=== PATIENT | male | born 1990 | race Caucasian/White ===

== ENCOUNTER 2019-02-18 15:23 | Emergency (ER) | payer SELFPAY ==
[2019-02-18] MEDS ORDERED: Ketorolac 60 MG/2 ML SDV IM ONE (16:00)
[2019-02-18] MEDS ORDERED: Orphenadrine 100 MG Tab.ER PO ONE (16:00)
--- NOTE | 2019-02-18 16:09 | EDM.PDOC ---
ED HPI GENERAL MEDICAL PROBLEM - General Chief Complaint: Back Pain or Injury Stated Complaint: BACK PAIN Time Seen by Provider: 02/18/19 15:31 Source of Information: Reports: Patient, RN Notes Reviewed History Limitations: Reports: No Limitations - History of Present Illness INITIAL COMMENTS - FREE TEXT/NARRATIVE: Patient is a 28-year-old male who presents to the ED for the evaluation of a back injury. 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 This is at the level of the top of his hips. He states that the pain does not radiate down his leg, nor does he have any numbness or tingling down the extremities. Patient states that he is residing in a hotel at this time, and he is having to get around the hotel room on his hands and knees as walking is somewhat painful for him. He states he has tried some Tylenol, Aleve and Advil however this has not provided to much relief. He states he feels as if there is a general stiffness associated with this. He denies any sort of previous injury to this area. Bilateral Upper Back Pain Score (Numeric/FACES): 8 - Related Data Allergies Allergy/AdvReac Type Severity Reaction Status Date / Time No Known Allergies Allergy Verified 02/18/19 15:31 Home Meds: Home Meds Albuterol Sulfate [Proair Respiclick] 2 puff INH QID PRN 02/18/19 [History] Orphenadrine [Norflex] 100 mg PO BID PRN #20 tab 02/18/19 [Rx] traMADol [Ultram] 50 mg PO Q6H PRN #28 tab 02/18/19 [Rx] Past Medical History Respiratory History: Reports: Asthma Social & Family History - Family History Family Medical History: Noncontributory - Tobacco Use Smoking Status *Q: Former Smoker Used Tobacco, but Quit: Yes Month/Year Tobacco Last Used: july 2017 - Caffeine Use Caffeine Use: Reports: Coffee - Recreational Drug Use Recreational Drug Use: No ED ROS GENERAL - Review of Systems Review Of Systems: See Below Constitutional: Reports: No Symptoms HEENT: Reports: No Symptoms Respiratory: Reports: No Symptoms Cardiovascular: Reports: No Symptoms Endocrine: Reports: No Symptoms GI/Abdominal: Reports: No Symptoms : Reports: No Symptoms Musculoskeletal: Reports: Back Pain (lower back pain) Skin: Reports: No Symptoms Neurological: Denies: Numbness, Tingling Psychiatric: Reports: No Symptoms Hematologic/Lymphatic: Reports: No Symptoms Immunologic: Reports: No Symptoms ED EXAM,LOWER BACK PAIN/INJURY - Physical Exam Exam: See Below Exam Limited By: No Limitations General Appearance: Alert, WD/WN, No Apparent Distress Eye Exam: Bilateral Eye: EOMI, Normal Inspection, PERRL Throat/Mouth: Normal Inspection, Normal Lips, Normal Teeth, Normal Gums, Normal Oropharynx, Normal Voice, No Airway Compromise Head: Atraumatic, Normocephalic Respiratory/Chest: No Respiratory Distress, Lungs Clear, Normal Breath Sounds, No Accessory Muscle Use, Chest Non-Tender Cardiovascular: Normal Peripheral Pulses, Regular Rate, Rhythm, No Murmur GI/Abdominal: Normal Bowel Sounds, Soft, Non-Tender, No Distention, No Mass Back Exam: Normal Inspection, Muscle Spasm, Paraspinal Tenderness (at the iliac crest level, bilaterally) Extremities: Normal Inspection, Normal Capillary Refill Neurological: Alert, Normal Mood/Affect, Normal Dorsiflexion, Normal Plantar Flexion, Normal Gait, Normal Reflexes, No Motor/Sensory Deficits. No: Straight Leg Raise (L), Straight Leg Raise (R), Saddle Anesthesia Psychiatric: Normal Affect, Normal Mood Skin Exam: Warm, Dry, Intact, Normal Color, No Rash Course - Vital Signs Last Recorded V/S: Last Vital Signs Temp 98.1 F 02/18/19 15:29 Pulse 73 02/18/19 15:29 Resp 19 02/18/19 15:29 BP 140/98 H 02/18/19 15:29 Pulse Ox 98 02/18/19 15:29 - Orders/Labs/Meds Meds: Medications Discontinued Medications Generic Name Dose Route Start Last Admin Trade Name Nahomy PRN Reason Stop Dose Admin Ketorolac Tromethamine 60 mg 02/18/19 16:00 02/18/19 16:05 Toradol IM 02/18/19 16:01 Not Given ONETIME ONE Ketorolac Tromethamine 10 mg 02/18/19 16:44 02/18/19 16:48 Toradol PO 02/18/19 16:45 10 mg ONETIME ONE Administration Orphenadrine Citrate 100 mg 02/18/19 16:00 02/18/19 16:05 Norflex PO 02/18/19 16:01 100 mg ONETIME ONE Administration - Re-Assessments/Exams Free Text/Narrative Re-Assessment/Exam: 02/18/19 16:13 Patient presents to the ED for evaluation of lower back pain. I did originally 60 mg IM Toradol and 100 mg PO and Norflex for management, the RN noted to me that the patient refused the Toradol at this time, since he drove himself to the ER I am not at liberty to give him any other sort of stronger pain medications. He states that he cannot take ibuprofen due to his stomach issues. I will see if the Norflex helps provide him some relief of pain and develop a plan after this. Departure - Departure Time of Disposition: 17:28 Disposition: Home, Self-Care 01 Condition: Fair Clinical Impression: Low back pain Qualifiers: Chronicity: acute Back pain laterality: bilateral Sciatica presence: without sciatica Qualified Code(s): M54.5 - Low back pain - Discharge Information *PRESCRIPTION DRUG MONITORING PROGRAM REVIEWED*: No *COPY OF PRESCRIPTION DRUG MONITORING REPORT IN PATIENT [place]: No Prescriptions: Orphenadrine [Norflex] 100 mg PO BID PRN #20 tab PRN Reason: Spasms traMADol [Ultram] 50 mg PO Q6H PRN #28 tab PRN Reason: Pain Instructions: Muscle Strain, [id number] Referrals: PCP,None [Primary Care Provider] - Forms: ED Department Discharge Additional Instructions: You have been evaluated in the ED for your low back pain Please use ice/heat as tolerated to the affected area. You may take Tylenol 500 mg or ibuprofen 600mg q6 hrs for pain relief. Please do so until you have a tolerable level of pain with activity. Do not exceed 4000mg Tylenol or 3200mg ibuprofen in a 24 hour time period. You were given a prescription for Norflex, a muscle relaxer, and tramadol, tramadol can be habit forming, please take as little of this medication as you need to to provide pain relief. This medication is meant to provide pain relief not relieved by Tylenol or ibuprofen alone. This medication was electronically sent to the [facility] located in the [facility]. Please return to ED if your symptoms should change or worsen.
[2019-02-18] MEDS ORDERED: Ketorolac 10 MG Tab PO ONE (16:44)
== END 2019-02-18 17:38 | disposition home or self-care (01) ==
LOC: JD.ED 15:23
DX: M54.5 Low back pain (principal); J45.909 Unspecified asthma, uncomplicated; Z87.891 Personal history of nicotine dependence; Z79.899 Other long term (current) drug therapy; X50.1XXA Overexertion from prolonged static or awkward postures, initial encounter; Y93.89 Activity, other specified
CPT/HCPCS: 99283; A9270